=== PATIENT | female | born 1940 | race Caucasian/White ===

== ENCOUNTER 2017-12-12 06:45 | Day surgery (SDC) | payer OTHER ==
[~2017-12-12] VITALS: Ht 167.6 cm; Wt 8.2 kg
[~2017-12-12 06:45] MED LIST: ATEN25TA PO; CELE200 PO; FLUO20CA30 PO; FLUT16H NASAL; LEVO100T4 PO; MONT10TA24 PO; SIMV10TA6 PO; focus PO; red yeast rice
[2017-12-12] MEDS ORDERED: SODIUM CHLORIDE 0.9% 1000ML 1,000 ML IV ONE (06:47)
[2017-12-12 07:23] VITALS: BP 147/77
[2017-12-12] MEDS ORDERED: PROPOFOL 10 MG/ML 20ML VIAL IV ONE (08:45)
[2017-12-12 09:07] VITALS: BP 89/46
== END 2017-12-12 09:45 | disposition home or self-care (01) ==
LOC: ENDO 06:45 → DAH 06:45 → ENDO 09:45
PROVIDERS: ATTEND Internal Medicine Gastroenterology
DX: Z09 Encounter for follow-up examination after completed treatment for conditions other than malignant neoplasm (principal); I10 Essential (primary) hypertension; E78.4 Other hyperlipidemia; E03.8 Other specified hypothyroidism; M19.90 Unspecified osteoarthritis, unspecified site; F32.89 Other specified depressive episodes; Z90.710 Acquired absence of both cervix and uterus; Z98.890 Other specified postprocedural states; K63.89 Other specified diseases of intestine; Z86.010 Personal history of colon polyps; Z79.899 Other long term (current) drug therapy
CPT/HCPCS: 93005; A4606; G0105; J2704; J7030

== ENCOUNTER 2017-12-18 07:46 | Day surgery (SDC) | payer OTHER ==
[~2017-12-18] VITALS: Ht 167.6 cm; Wt 78.7 kg
[~2017-12-18 07:46] MED LIST changes: +SODIUM CHLORIDE 0.9% 1000ML 1,000 ML IV ONE
[2017-12-18 08:04] VITALS: BP 127/68
[2017-12-18] MEDS ORDERED: LOTE55OS OP (09:42)
[2017-12-18] MEDS ORDERED: PROPOFOL 10 MG/ML 20ML VIAL IV ONE (10:23)
[2017-12-18 10:45] VITALS: BP 95/42
== END 2017-12-18 11:25 ==
LOC: DAH 07:46 → ENDO 07:46
PROVIDERS: ATTEND Internal Medicine Gastroenterology
DX: Z08 Encounter for follow-up examination after completed treatment for malignant neoplasm (principal); Q43.8 Other specified congenital malformations of intestine; K63.89 Other specified diseases of intestine; I10 Essential (primary) hypertension; E78.5 Hyperlipidemia, unspecified; E03.9 Hypothyroidism, unspecified; M19.90 Unspecified osteoarthritis, unspecified site; F32.9 Major depressive disorder, single episode, unspecified; Z80.9 Family history of malignant neoplasm, unspecified; Z79.899 Other long term (current) drug therapy; Z90.710 Acquired absence of both cervix and uterus; Z87.19 Personal history of other diseases of the digestive system; Z98.890 Other specified postprocedural states
CPT/HCPCS: A4606; J2704; J7030

== ENCOUNTER → 2018-06-25 | Outpatient (CLI) | payer OTHER ==
[~2018-06-25] MED LIST changes: +ALBUTEROL SULFATE 0.083% 2.5 MG/3 ML INH IH ONE; +LOTE55OS OP; -SODIUM CHLORIDE 0.9% 1000ML 1,000 ML IV ONE
== END | disposition home or self-care (01) ==
LOC: RESP 12:33
PROVIDERS: ATTEND Internal Medicine
DX: J44.9 Chronic obstructive pulmonary disease, unspecified (principal); R06.00 Dyspnea, unspecified; F17.200 Nicotine dependence, unspecified, uncomplicated
CPT/HCPCS: 94060; 94727; 94729

== ENCOUNTER → 2022-11-25 | Outpatient (CLI) | payer MEDICARE ==
[~2022-11-25] MED LIST changes: -ALBUTEROL SULFATE 0.083% 2.5 MG/3 ML INH IH ONE; +MONT-39 PO; -MONT10TA24 PO; -SIMV10TA6 PO; +SIMV10TA97 PO
== END | disposition home or self-care (01) ==
LOC: SLP 20:18
PROVIDERS: ATTEND Nurse Practitioner Family
DX: G47.33 Obstructive sleep apnea (adult) (pediatric) (principal)
CPT/HCPCS: 95810

== ENCOUNTER → 2025-08-30 | Outpatient (CLI) | payer MEDICARE ==
[~2025-08-30] MED LIST changes: -ATEN25TA PO; -CELE200 PO; +CEPH500T PO; -FLUO20CA30 PO; +FLUO20CA95 PO; -FLUT16H NASAL; +LATA2.5D7 OP; -LOTE55OS OP; +PROP1DRO4 OP; -focus PO; -red yeast rice
--- NOTE | 2025-08-31 10:54 | HMCIMG ---
EXAM: CT SCAN OF THE ABDOMEN AND PELVIS WITHOUT CONTRAST Clinical statement: Left upper quadrant abdominal swelling, mass, and lump; compare to prior CT. STUDY PROTOCOL: CT radiation dose protocol was performed in accordance with the principles of ALARA. A multislice CT scan of the abdomen and pelvis was performed without intravenous contrast. Sections were obtained from the diaphragms to the inguinal regions. RADIATION DOSE: CTDIvol 7.70 mGy; DLP 378.60 mGycm. CONTRAST: No intravenous contrast administered. COMPARISON: CT scan of the abdomen and pelvis with contrast from 04/20/2025 at 06:27. FINDINGS: LUNG BASES: Previously seen bibasilar atelectasis has resolved. There is a new 3 mm solid pulmonary nodule in the left lower lobe (series 2, image 8/90). No pleural effusion or consolidation is identified in the visualized lung bases. LIVER: Liver is unremarkable in size, contour, and attenuation on this noncontrast study. No focal hepatic lesion is identified. No intrahepatic biliary ductal dilatation is seen. GALLBLADDER AND BILE DUCTS: Gallbladder and extrahepatic bile ducts are unremarkable. No gallstones or biliary ductal dilatation is identified. PANCREAS: Pancreas is normal in size and contour on this noncontrast study. No focal pancreatic mass, ductal dilatation, or peripancreatic inflammatory change is identified. SPLEEN: Spleen is normal in size and attenuation without focal lesion. ADRENAL GLANDS: Right and left adrenal glands are normal in size and morphology without focal mass. KIDNEYS, URETERS, AND BLADDER: Both kidneys are normal in position and overall size. A moderate-sized left renal cyst is present, without internal septations or solid components described on this noncontrast study, compatible with a simple cyst. A new 2 mm nonobstructing calculus is seen in the lower calyx of the right kidney. No hydronephrosis, hydroureter, or perinephric stranding is present. No ureteral or bladder calculi are identified. Urinary bladder is unremarkable. STOMACH AND BOWEL: Stomach and duodenum are normal in caliber without wall thickening or obstruction. Small bowel loops show normal caliber and wall thickness, without evidence of obstruction. Sigmoid colon diverticulosis is present without adjacent fat stranding, wall thickening, fluid collection, or free air to suggest acute diverticulitis. Remaining large bowel loops are normal in caliber without obstructing lesion. APPENDIX: Appendix is visualized and appears normal, without enlargement, wall thickening, or periappendiceal inflammatory changes. No CT evidence of acute appendicitis. PERITONEUM: Previously demonstrated fluid in the bilateral paracolic gutters and intraperitoneal hematoma in the pelvis have resolved. No residual ascites, intraperitoneal free air, or new focal peritoneal collection is identified. LYMPH NODES: Previously described intraperitoneal lymph nodes have resolved. No pathologically enlarged mesenteric, retroperitoneal, or pelvic lymph nodes are identified on the current study. REPRODUCTIVE ORGANS: Reproductive structures are unremarkable as visualized. No adnexal mass is seen. VASCULATURE: Abdominal aorta is normal in caliber without aneurysm. Major abdominal branches are grossly unremarkable on this noncontrast study. No new vascular abnormality is identified. ABDOMINAL WALL AND SOFT TISSUES: Abdominal wall and subcutaneous soft tissues are unremarkable without focal mass, hernia, or fluid collection. BONES: There is a comminuted fracture of the left-sided pubic symphysis, present on the prior study, without new displacement or associated large pelvic hematoma on the current exam. Mild degenerative changes are present in the lumbar spine without acute compression deformity or destructive osseous lesion. IMPRESSION: * New 3 mm solid pulmonary nodule in the left lower lobe, incidentally noted at the lung bases. In a low-risk adult patient, current guideline-based recommendations generally do not require routine CT follow-up for a solitary solid nodule ?4 mm; in higher-risk patients, a 12-month low-dose chest CT may be considered to document stability. Recommend correlation with individual lung cancer risk factors (age, smoking history, prior malignancy) to determine need for surveillance. * Moderate-sized simple-appearing left renal cyst without complex features. In line with consensus guidance for simple (Bosniak III) renal cysts, no dedicated CT follow-up is typically required in the absence of strong malignancy risk factors; if further characterization or interval assessment is desired, ultrasound follow-up is an appropriate modality. * New 2 mm nonobstructing calculus in the lower pole of the right kidney, without hydronephrosis or perinephric stranding, compatible with asymptomatic nephrolithiasis; management is primarily clinical and preventive (hydration and metabolic risk-factor assessment) unless symptoms develop. * Sigmoid colon diverticulosis without CT evidence of acute diverticulitis or bowel obstruction. * Comminuted fracture of the left pubic symphysis, present on the prior CT and without associated pelvic hematoma or new displacement on the current study, compatible with a known or subacute/chronic fracture; correlate with prior trauma history and clinical symptoms for management and weight-bearing guidance. * Interval resolution of previously described bibasilar atelectasis, fluid in the bilateral paracolic gutters, intraperitoneal pelvic hematoma, and intraperitoneal lymphadenopathy compared with the contrast-enhanced CT abdomen and pelvis from 04/20/2025. No new acute intra-abdominal or pelvic pathology is identified to explain a new left upper quadrant mass or lump on this noncontrast examination. /Jabari
== END | disposition home or self-care (01) ==
LOC: RAH 12:20
PROVIDERS: ATTEND Urology
DX: S32.592A Other specified fracture of left pubis, initial encounter for closed fracture (principal); N28.1 Cyst of kidney, acquired; R31.29 Other microscopic hematuria; R91.1 Solitary pulmonary nodule; N20.0 Calculus of kidney; M47.816 Spondylosis without myelopathy or radiculopathy, lumbar region; J98.11 Atelectasis; K57.30 Diverticulosis of large intestine without perforation or abscess without bleeding; X58.XXXA Exposure to other specified factors, initial encounter; Y93.89 Activity, other specified; Y92.89 Other specified places as the place of occurrence of the external cause; Y99.8 Other external cause status
CPT/HCPCS: 74176